=== PATIENT | female | born 1995 | race Hispanic/Latino ===

== ENCOUNTER 2019-06-27 11:28 | Emergency (ER) | payer BC ==
[~2019-06-27] VITALS: Ht 154.9 cm; Wt 105.2 kg
--- OUTSIDE RECORDS SUMMARY | 2019-06-27 11:31 | XMS REPORT | Summary of Care ---
Author Author [facility] - Health Organization [facility] - Health Address Unknown Phone Unavailable Care Team Providers Care Car Salesperson Name Role Phone Guille Narayan MD PCP Encounter Details Care Team Description Date Type Department Priyanka Edmonds, UTILITY AGENT [address] [place] [address] [phone] Arrived 06/26/2019 [facility] Encounter Primary Care - Radiology [address] [place] [address] Allergies Comments Active Allergy Reactions Severity Noted Date Aspirin Anaphylaxis, 04/11/2018 Hives, Swelling Nsaids (Non-Steroidal Anaphylaxis, 04/11/2018 Anti-Inflammatory Drug) Hives, Swelling documented as of this encounter (statuses as of 06/27/2019) Medications End Date Status Medication Sig Dispensed Refills Start Date Active diphenhydramine HCl Take by 0 (BENADRYL ALLERGY ORAL) mouth. 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 Each 40.0 to 44.9 in adult main meal containing fat Active SERTraline 50 mg Take 1 tablet 30 tablet 3 tabletIndications: by mouth 9 Anxiety daily. ON WEEKDAYS, TAKE 25 MG DAILY ON WEEKENDS Active busPIRone 5 mg Take 1 tablet 60 tablet 2 tabletIndications: by mouth 2 9 Anxiety (two) times daily as needed (anxiety). Active SERTraline 25 mg Take 1 tablet 30 tablet 0 tabletIndications: by mouth 9 Anxiety daily. ONLY ON WEEKENDS, 50 MG ON WEEKDAYS 07/10/2019 Active benzonatate (TESSALON Take 1 42 capsule 0 PERLES) 100 mg capsule by 9 capsuleIndications: Cough mouth 3 (three) times daily as needed for Cough for up to 14 days. 07/06/2019 Active doxycycline 100 mg Take 1 20 capsule 0 capsuleIndications: capsule by 9 Pneumonia of left upper mouth every lobe due to infectious 12 (twelve) organism hours for 10 days. documented as of this encounter (statuses as of 06/27/2019) Active Problems No known active problemsdocumented as of this encounter (statuses as of 06/27/2019) Immunizations Name Administration Dates Next Due HPV9 06/14/2018 Influenza Virus Vaccine 08/24/2018, 10/27/2017 Tdap 05/25/2018 documented as of this encounter Social History Date Tobacco Use Types Packs/Day Years Used Former Smoker Smokeless Tobacco: Never Used Drinks/Week oz/Week Comments Alcohol Use 3 times monthly Yes Sex Assigned at Date Recorded Not on file Industry Job Start Date Occupation Not on file Not on file Not on file Travel End Travel History Travel Start No recent travel history available. documented as of this encounter Last Filed Vital Signs Not on filedocumented in this encounter Plan of Treatment Care Team Description Date Type Specialty Emma Nicholson PA-C [address], [place] [phone] 07/03/2019 Office Visit Otolaryngology Kate Weiss MD [address] [place] [address] [address] [place] [phone] 07/03/2019 Office Visit Plastic Surgery Guille Narayan MD [address] [place] [address] 07/04/2019 Office Visit Internal Medicine Health Maintenance Due Date Last Done Comments MENINGOCOCCAL B VACCINES 2005 (1 of 2 - Risk Bexsero 2-dose series) VARICELLA VACCINES (1 of 2008 2 - 13+ 2-dose series) CHLAMYDIA SCREENING 2011 HPV VACCINES (2 - Female 07/12/2018 06/14/2018 3-dose series) INFLUENZA VACCINE 07/21/2019 08/24/2018, 10/27/2017, 10/27/2017 PAP SMEAR 10/27/2020 10/27/2017 DTaP,Tdap,and Td Vaccines 05/25/2028 05/25/2018 (2 - Td) PNEUMOCOCCAL 0-64 YEARS Aged Out No longer eligible based COMBINED SERIES on patient's age to complete this topic documented as of this encounter Procedures Comments Procedure Name Priority Date/Time Associated Diagnosis XR CHEST 2 VW Routine 06/26/2019 Chest congestion 1:03 PM CDT documented in this encounter Results * XR CHEST 2 VW (06/26/2019 1:03 PM CDT) Specimen Impressions Performed At 1.Hazy airspace opacity along the periphery of the left upper lobe, PACS/VR/DOSE concerning for pneumonia. A follow-up chest radiograph is recommended in 6-8 weeks after appropriate treatment to determine resolution. Narrative Performed At * * * * * * * * ORIGINAL REPORT * * * * * * * * PACS/VR/DOSE EXAM: XR CHEST 2 VW COMPARISON: None available HISTORY: chest congestion FINDINGS: Lines/Tubes: None. Lungs: Hazy airspace opacity along the periphery of the left upper lobe is noted. No pleural effusion or pneumothorax is identified. Heart/Mediastinum: The cardiomediastinal silhouette is normal for technique. Bones: No acute osseous abnormality is seen. Procedure Note [facility], Radiant Results Inft User - 06/26/2019 1:20 PM CDT * * * * * * * * ORIGINAL REPORT * * * * * * * * EXAM: XR CHEST 2 VW COMPARISON: None available HISTORY: chest congestion FINDINGS: Lines/Tubes: None. Lungs: Hazy airspace opacity along the periphery of the left upper lobe is noted. No pleural effusion or pneumothorax is identified. Heart/Mediastinum: The cardiomediastinal silhouette is normal for technique. Bones: No acute osseous abnormality is seen. IMPRESSION 1. Hazy airspace opacity along the periphery of the left upper lobe, concerning for pneumonia. A follow-up chest radiograph is recommended in 6-8 weeks after appropriate treatment to determine resolution. Performing Organization Address City/State/Zipcode Phone Number PACS/VR/DOSE documented in this encounter Visit Diagnoses Diagnosis Chest congestion Other symptoms involving respiratory system and chest documented in this encounter Insurance Type Payer Benefit Subscriber ID Effective Phone Address Plan / Dates Group PPO/POS BCBS OF [place] - [facility] BCBS OF [id number] 2018- [place] Present EMPLOYEE PLAN documented as of this encounter
--- OUTSIDE RECORDS SUMMARY | 2019-06-27 11:31 | XMS REPORT | Summary of Care ---
Author Author [facility] - Health Organization [facility] - Health Address Unknown Phone Unavailable Care Team Providers Care Wastewater Analyst Lab Analyst Name Role Phone Guille Narayan MD PCP Encounter Details Care Team Description Date Type Department Doctor Unassigned, Effort [address] [place] [id number] 06/26/2019 Orders Only [facility] [address] [place] [address] Allergies Comments Active Allergy Reactions Severity Noted Date Aspirin Anaphylaxis, 04/11/2018 Hives, Swelling Nsaids (Non-Steroidal Anaphylaxis, 04/11/2018 Anti-Inflammatory Drug) Hives, Swelling documented as of this encounter (statuses as of 06/26/2019) Medications End Date Status Medication Sig Dispensed [...] ONLY ON WEEKENDS, 50 MG ON WEEKDAYS documented as of this encounter (statuses as of 06/26/2019) Active Problems No known active problemsdocumented as of this encounter (statuses as of 06/26/2019) Immunizations Name Administration Dates Next Due HPV9 [...] Treatment Care Team Description Date Type Specialty GreyPriyanka Deep, FOOD ASSEMBLER [employer] [address] [place] [address] [phone] 06/26/2019 Office Visit Family Medicine Emma Nicholson PA-C [address] [place] [address] [phone] 07/03/2019 Office Visit Otolaryngology Kate Weiss MD [address] [place] [address] [address] [place] [phone] 07/03/2019 Office Visit Plastic Surgery Guille Narayan MD [address] [place] [phone] 07/04/2019 Office Visit Internal Medicine Health Maintenance [...] Comments Procedure Name Priority Date/Time Associated Diagnosis ASSIGNMENT OF BENEFITS Routine 06/26/2019 11:54 AM CDT documented in this encounter Results Not on filedocumented in this encounter Insurance Type Payer Benefit Subscriber ID Effective Phone Address Plan / Dates Group PPO/POS BCBS OF [facility] BCBS OF [id number] 2018- EMPLOYEE [place] Present EMPLOYEE PLAN documented as of this encounter
--- OUTSIDE RECORDS SUMMARY | 2019-06-27 11:31 | XMS REPORT | Summary of Care ---
Author Author [facility] - Health Organization [facility] - Health Address Unknown Phone Unavailable Care Team Providers Care Olive Packer Name Role Phone Guille Narayan MD PCP Reason for Visit * Reason Comments Cough Vomiting Shortness of Breath Encounter Details Care Team Description Date Type Department EdmondsPasqualeamor Adame, [facility] [address] [place] [address] [phone] Pneumonia of left upper lobe due to infectious organism (Primary Dx); Chest congestion; Cough 06/26/2019 Office Visit [facility] Primary Care[address] [phone] Allergies Comments Active Allergy Reactions Severity Noted [...] of this encounter Last Filed Vital Signs Reading Time Taken Comments Vital Sign 120/70 06/26/2019 12:00 PM CDT Blood Pressure 92 06/26/2019 12:00 PM CDT Pulse 36.4 C (97.6 F) 06/26/2019 12:00 PM CDT Temperature 20 06/26/2019 12:00 PM CDT Respiratory Rate - - Oxygen Saturation - - Inhaled Oxygen Concentration 106.1 kg (234 lb) 06/26/2019 12:00 PM CDT Weight - - Height 44.21 03/22/2019 3:20 PM CDT Body Mass Index documented in this encounter Progress Notes * Priyanka Edmonds, FINANCE MANAGER - 06/26/2019 12:00 PM CDT SUBJECTIVE CC: Cough; Vomiting; and Shortness of Breath PCP : Guille Narayan HPI: Belinda Dong is a 23 year old female who comes today with cough x 6 days. Cough was dry at first, by Monday cough was more forceful. OTC: mucinex, dymi sta, benadryl. patient had severe congestion on Monday. Patient states mucus pro duction yellow-green in color. Patient threw up this am from nausea and congesti on. Post nasal drip, sleeping with pillows propped up. Patient states she was wh eezing yesterday, less today. No antibiotic use in the last month. Denies fever, coughing up blood, night sweats. ASSOCIATED SYMPTOMS/REVIEW OF SYMPTOMS: Sick Contacts: contacts with similar symptoms - no Constitutional: denies appetite changes, denies chills, denies fatigue, denies fever and denies sweats. HEENT: denies sore throat, nasal drainage, nasal congestion, earache and eye irr itation, redness or discharge Cardiovascular: denies chest pain, denies palpitations and denies tachycardia. Respiratory: cough, denies chest congestion, denies dyspnea on exertion, denies inability to take deep breath, denies shortness of breath and denies wheezing. Gastrointestinal: denies abdominal pain, denies diarrhea, denies nausea and de nies vomiting. Genitourinary: denies dysuria, denies flank pain, denies hematuria, denies inc ontinence, denies urgency, denies urinary frequency and denies discolored urine. Skin: denies lesions and denies rash. Hem/Lymph: denies lymphadenopathy. PAST HISTORY Past Medical History: Diagnosis Date Anxiety Asthma Immunizations: UTD Family History Problem Relation Age of Onset Diabetes Mother High cholesterol Mother Hypertension Mother Cancer Mother 40 ovarian cancer Ovarian Cancer Mother Diabetes Father Diabetes Brother Cancer Maternal Grandmother 53 stage IV lung cancer - non smoker Social History Socioeconomic History Marital status: Single Spouse name: Not on file Number of children: Not on file Years of education: Not on file Highest education level: Not on file Occupational History Not on file Social Needs Financial resource strain: Not on file Food insecurity: Worry: Not on file Inability: Not on file Transportation needs: Medical: Not on file Non-medical: Not on file Tobacco Use Smoking status: Former Smoker Smokeless tobacco: Never Used Substance and Sexual Activity Alcohol use: Yes Comment: 3 times monthly Drug use: No Sexual activity: Yes Partners: Male control/protection: None Lifestyle Physical activity: Days per week: Not on file Minutes per session: Not on file Stress: Not on file Relationships Social connections: Talks on phone: Not on file Gets together: Not on file Attends anglican service: Not on file Active member of club or organization: Not on file Attends meetings of clubs or organizations: Not on file Relationship status: Not on file Intimate partner violence: Fear of current or ex partner: Not on file Emotionally abused: Not on file Physically abused: Not on file Forced sexual activity: Not on file Other Topics Concern Not on file Social History Narrative Not on file Health Maintenance Due Topic Date Due MENINGOCOCCAL B VACCINES (1 of 2 - Risk Bexsero 2-dose series) 2005 VARICELLA VACCINES (1 of 2 - 13+ 2-dose series) 2008 CHLAMYDIA SCREENING 2011 HPV VACCINES (2 - Female 3-dose series) 07/12/2018 Current Meds: Current Outpatient Medications on File Prior to Visit Medication Sig Dispense Refill busPIRone 5 mg tablet Take 1 tablet by mouth 2 (two) times daily as needed ( anxiety). 60 tablet 2 orlistat 60 mg capsule Take 1 capsule by mouth 3 (three) times daily with me als. Each main meal containing fat 120 capsule 2 SERTraline 25 mg tablet Take 1 tablet by mouth daily. ONLY ON WEEKENDS, 50 M G ON WEEKDAYS 30 tablet 0 SERTraline 50 mg tablet Take 1 tablet by mouth daily. ON WEEKDAYS, TAKE 25 M G DAILY ON WEEKENDS 30 tablet 3 diphenhydramine HCl (BENADRYL ALLERGY ORAL) Take by mouth. No current facility-administered medications on file prior to visit. ALLERGIES: Allergies Allergen Reactions Asa [Aspirin] Anaphylaxis, Hives and Swelling Nsaids (Non-Steroidal Anti-Inflammatory Drug) Anaphylaxis, Hives and Swellin g PHYSICAL EXAM BP 120/70 (BP Location: Right arm, Patient Position: Standing, BP CUFF SIZE: Pop lt Medium) | Pulse 92 | Temp 36.4 C (97.6 F) (Temporal Artery) | Resp 20 | Wt 106.1 kg (234 lb) | BMI 44.21 kg/m General: Alert, active, in no acute distress. Head: Normocephalic. Eyes: Pupils equal, round, reactive to light, EOMI, bilateral conjunctivae clear , no discharge. Ears: External auditory canals are clear. TM's mary kay, landmarks noted. Nose: none nasal discharge. Mouth: No lesions noted. Gums normal. Tongue symmetric. Throat: Moist mucous membranes with erythema, cobblestoning noted Neck: no lymphadenopathy. No thyromegaly. Lungs: Bilateral lower lobe diminished, no rales, rhonchi, wheezing noted Heart: Regular rate and rhythm, no murmur auscultated. Abdomen: Normal bowel sounds, soft, non-tender, non-distended, no hepatosplenome alta or masses. No CVA tenderness. Skin: Skin color normal for ethnicity, texture and turgor are normal; no bruisin g, rashes or lesions noted. Capillary refill 2 sec. Interventions in clinic: Belinda was seen today for cough, vomiting and shortness of breath. Diagnoses and all orders for this visit: Pneumonia of left upper lobe due to infectious organism - doxycycline 100 mg capsule; Take 1 capsule by mouth every 12 (twelve) hour s for 10 days. Chest congestion - XR CHEST 2 VW; Future Cough - benzonatate (TESSALON PERLES) 100 mg capsule; Take 1 capsule by mouth 3 (t hree) times daily as needed for Cough for up to 14 days. * * * * * * * [...] weeks after appropriate treatment to determine resolution. ASSESSMENT ICD-10-CM ICD-9-CM 1. Pneumonia of left upper lobe due to infectious organism J18.1 486 2. Chest congestion R09.89 786.9 3. Cough R05 786.2 PLAN: Current Outpatient Medications Medication Sig benzonatate (TESSALON PERLES) 100 mg capsule Take 1 capsule by mouth 3 (thre e) times daily as needed for Cough for up to 14 days. doxycycline 100 mg capsule Take 1 capsule by mouth every 12 (twelve) hours f or 10 days. busPIRone 5 mg tablet Take 1 tablet by mouth 2 (two) times daily as needed ( anxiety). orlistat 60 mg capsule Take 1 capsule by mouth 3 (three) times daily with me als. Each main meal containing fat SERTraline 25 mg tablet Take 1 tablet by mouth daily. ONLY ON WEEKENDS, 50 M G ON WEEKDAYS SERTraline 50 mg tablet Take 1 tablet by mouth daily. ON WEEKDAYS, TAKE 25 M G DAILY ON WEEKENDS diphenhydramine HCl (BENADRYL ALLERGY ORAL) Take by mouth. CAR pneumonia Doxycycline x 10 days Rest at home for the first 2 to 3 days, or until you feel stronger. Dont l et yourself get overly tired when you go back to your activities. Stay away from cigarette smoke yours or other peoples. You may use acetaminophen or ibuprofen to control fever or pain, unless anoth er medicine was prescribed. If you have chronic liver or kidney disease, talk wi th your healthcare provider before using these medicines. Also talk with your pr ovider if youve had a stomach ulcer or gastrointestinal bleeding. Dont giv e aspirin to anyone younger than 18 years of age who is ill with a fever. It may cause severe liver damage. Your appetite may be poor, so a light diet is fine. Drink 6 to 8 glasses of fluids every day to make sure you are getting enough fluids. Beverages can include water, sport drinks, sodas without caffeine, juice s, tea, or soup. Fluids will help loosen secretions in the lung. This will make it easier for you to cough up the phlegm (sputum). If you also have heart or kid iva disease, check with your healthcare provider before you drink extra fluids. Take antibiotic medicine prescribed until it is all gone, even if you are fee ling better after a few days. Follow up with PCP in 4-6 weeks for repeat chest xray. Call your healthcare provider right away if any of these occur: You dont get better within the first 48 hours of treatment Shortness of breath gets worse Rapid breathing (more than 25 breaths per minute) Coughing up blood Chest pain gets worse with breathing Fever of100.4F (38C) or higher that doesnt get better with fever med icine Weakness, dizziness, or fainting that gets worse Thirst or dry mouth that gets worse Sinus pain, headache, or a stiff neck Chest pain not caused by coughing Plan of care, desired health behaviors, goals and medications discussed with pat ient/parent and educational resources and self-management tools provided. Patient/family/guardian voices understanding. Barriers to care: none Ability to manage care: good documented in this encounter Plan of Treatment Care Team Description Date Type Specialty Emma Nicholson PA-C [address] [place] [address] [phone] 07/03/2019 Office Visit Otolaryngology Kate Weiss MD [address] [place] [address] [address] [place] [address] 07/03/2019 Office Visit Plastic Surgery Guille Narayan MD [address] [place] [address] 07/04/2019 Office Visit Internal Medicine [...] this topic documented as of this encounter Results * XR CHEST 2 [...] acute osseous abnormality is seen. Procedure Note [facility], Radiant Results Inft User - 06/26/2019 1:20 [...] documented in this encounter Visit Diagnoses Diagnosis Pneumonia of left upper lobe due to infectious organism - Primary Chest congestion Other symptoms involving respiratory system and chest Cough documented in this encounter Insurance Type Payer Benefit Subscriber ID Effective Phone Address Plan / Dates Group PPO/POS BCBS OF [place] - [facility] BCBS OF [id number] 2018- EMPLOYEE [place] Present EMPLOYEE PLAN documented as of this encounter"
--- OUTSIDE RECORDS SUMMARY | 2019-06-27 11:31 | XMS REPORT | Summary of Care ---
Author Author [facility] - Health Organization [facility] - Health Address Unknown Phone Unavailable Care Team Providers Care Health Care Analyst Name Role Phone Guille Narayan MD PCP Reason for Visit * Reason Comments Cough Vomiting Shortness of Breath Encounter Details Care Team Description Date Type Department EdmondsPasqualeamor Adame, [facility] [address] [place] [address] [phone] Pneumonia of left upper lobe due to infectious organism (Primary Dx); Chest congestion; Cough 06/26/2019 Office Visit [facility] Pediatric [facility] Adult Primary Care[address] [phone] Allergies Comments Active Allergy Reactions Severity Noted [...] this encounter Progress Notes * Priyanka Edmonds, ROTOR WINDER - 06/26/2019 12:00 PM CDT SUBJECTIVE CC: [...] file Gets together: Not on file Attends sikh service: Not on file Active member of [...] Type Specialty Emma Nicholson PA-C [address] [place] [address] [phone] 07/03/2019 Office Visit Otolaryngology Kate Weiss MD [address] [place] [address] [address] [place] [address] 07/03/2019 Office Visit Plastic Surgery Guille Narayan MD [address] [place] [address] 07/04/2019 Office Visit Internal Medicine [...] acute osseous abnormality is seen. Procedure Note [facility], Radiant Results Inft User - [...] Plan / Dates Group PPO/POS BCBS OF [place] - [facility] BCBS OF [id number] 2018- EMPLOYEE [place] Present EMPLOYEE PLAN documented as of this encounter"
--- OUTSIDE RECORDS SUMMARY | 2019-06-27 11:31 | XMS REPORT ---
Author Author [facility] Address Unknown Phone Unavailable Care Team Providers Care Art Dealer Name Role Phone Unavailable Unavailable Payers Payer Name Policy Type Policy Number Effective Date Expiration Date Problems This patient has no known problems. Allergies, Adverse Reactions, Alerts Allergy Name Allergy Type Status Severity Reaction(s) Onset Date Inactive Date Treating Clinician Comments No Known Allergies DA Active U 2019-01-30 00:00:00 Medications This patient has no known medications. Results Test Description Test Time Test Comments Text Results Atomic Results Result Comments UR HCG QUAL 2019-01-30 22:35:00 UR HCG QUAL (test code=HCGQLU) NEGATIVE This HCGQL test is NOT applicable for MALE patients.Check with nurse about probable order error.If Tumor Marker Test needed, nurse should order test "HCGTU"(Test #[id number]) - XR CHEST 2 [id number] 19:02:00 FAX: Zia Troy DO [place]: [place] St: REG FAX: Guille Lopez MD [phone] Name: JASWINDER JORDAN [facility] FSED : 1995 Age/S: 23/F [address] Unit #: [id number] Loc: [facility] [address] Phys: Zia Troy DO [place], [place] [address] Acct: [id number] Dis Date: Status: REG ER PHONE #: Exam Date: 01/30/2019 190 FAX #: Reason: cough EXAMS: CPT CODE: [id number] XR CHEST 2 V 16468 EXAM: Chest X-ray, 2 views; CLINICAL HISTORY: Cough; FINDINGS: The lungs are clear, no infiltrates, no edema; no effusions; no pneumothorax; normal cardiomediastinal silhouette. IMPRESSION: Normal chest x-ray. at 1902 Reported and signed by: Aydin Loyola M.D. CC: Zia Troy DO; Guille Narayan MD Technologist: Jeana Smith Trnscrd Date/Time/By: 01/30/2019 (1901) : By: EchoGRW Orig Print D/T: S: 01/30/2019 (1904) PAGE 1 Signed Report
[2019-06-27] MEDS ORDERED: SODIUM CHLORIDE 0.9% 1000ML 1,000 ML IV STA (11:57)
[2019-06-27] MEDS ORDERED: CEFTRIAXONE SOD 1 GM/NS 50 ML 50 ML IV ONE (12:00)
[2019-06-27 12:13] LABS: BASOPHILS % 0.4 % (0.0-1.0); EOSINOPHILS # (AUTO) 0.3 (0.0-0.4); EOSINOPHILS % 4.2 % (0.0-6.0); HEMATOCRIT 39.4 % (34.2-44.1); HEMOGLOBIN 12.8 g/dL (12.0-16.0); LYMPHOCYTES # (AUTO) 2.2 (1.0-3.2); LYMPHOCYTES % 30.7 % (18.0-39.1); MEAN CORPUSCULAR HEMOGLOBIN 26.2 pg (28-32); MEAN CORPUSCULAR HGB CONC 32.5 g/dL (31-35); MEAN CORPUSCULAR VOLUME 80.7 fL (81-99); MONOCYTES # (AUTO) 0.7 (0.2-0.8); MONOCYTES % 9.3 % (4.4-11.3); NEUTROPHILS # (AUTO) 3.9 (2.1-6.9); NEUTROPHILS % 54.8 % (38.7-80.0); PLATELET COUNT 382 x10e3/uL (140-360); RED BLOOD COUNT 4.88 x10e6/uL (3.6-5.1); RED CELL DISTRIBUTION WIDTH 14.4 % (11.7-14.4)
[2019-06-27 12:14] LABS: BILIRUBIN,URINE NEGATIVE (NEGATIVE); CLARITY,URINE CLEAR (CLEAR); COLOR,URINE YELLOW (YELLOW); KETONES,URINE NEGATIVE (NEGATIVE); LEUKOCYTE ESTERASE ,URINE TRACE (NEGATIVE); NITRITE,URINE NEGATIVE (NEGATIVE); PROTEIN,URINE DIPSTICK NEGATIVE (NEGATIVE); URINE UROBILINOGEN 0.2 mg/dL (0.2 - 1)
[2019-06-27 12:29] LABS: ANION GAP 14.9 mmol/L (8-16); BLOOD UREA NITROGEN 10 mg/dL (7-26); BUN/CREATININE RATIO 14 (6-25); CALCIUM 9.7 mg/dL (8.4-10.2); CARBON DIOXIDE 21 mmol/L (22-29); CHLORIDE 105 mmol/L (98-107); CREATINE KINASE 59 IU/L (29-168); EST GLOMERULAR FILTRATION RATE > 60 ML/MIN (60-); GLUCOSE 86 mg/dL (74-118); POTASSIUM 3.9 mmol/L (3.5-5.1); SODIUM 137 mmol/L (136-145)
[2019-06-27 12:44] LABS: BACTERIA,URINE MANY /HPF; EPITHELIAL CELLS,URINE RARE /LPF; RBC,URINE 0-5 /HPF (0-5)
[2019-06-27] MEDS ORDERED: AZITHROMYCIN 500MG/NS 250 ML 250 ML IV ONE (12:45)
--- NOTE | 2019-06-27 13:14 | Diagnostic Imaging Report ---
EXAMINATION: CHEST 2 VIEWS INDICATION: Cough COMPARISON: None FINDINGS: LINES/TUBES:None LUNGS:The lungs are well-inflated. Airspace opacification at the lateral left mid to upper lung zone. No pulmonary edema. PLEURA:No pleural effusion or pneumothorax. MEDIASTINUM:The cardiomediastinal silhouette appears normal in size and shape. BONES/SOFT TISSUES:No acute osseous injury. ABDOMEN:No free air under the diaphragm. IMPRESSION: Left mid to upper lung zone airspace opacity is compatible with pneumonia in the proper clinical setting. RECOMMENDATIONS: Chest radiograph in 6-8 weeks to assess for resolution and exclude underlying pulmonary lesion. Signed by: Tyrel Dee MD on 06/27/2019 1:10 PM
[2019-06-27 13:55] VITALS: BP 112/70
== END 2019-06-27 14:32 | disposition home or self-care (01) ==
LOC: ER 11:28
DX: R06.00 Dyspnea, unspecified (principal); R05 Cough; J15.9 Unspecified bacterial pneumonia
CPT/HCPCS: 36415; 71046; 80048; 81001; 82550; 82553; 84484; 85025; 93005; 99284; J0456; J0696; J7030